=== PATIENT | male | born 1945 | race African-American/Black ===

== ENCOUNTER 2020-12-11 15:39 | Emergency (ER) | payer BC ==
[~2020-12-11] VITALS: Ht 180.3 cm; Wt 91.0 kg
[2020-12-11 16:48] LABS: BASOPHILS % 0.5 % (0.0-2.0); EOSINOPHILS % 3.2 % (0.0-5.0); HEMATOCRIT. 41.8 % (42.0-52.0); LYMPHOCYTES % 28.7 % (20.0-50.0); MEAN CORPUSCULAR HEMOGLOBIN 29.7 pg (28.0-32.0); MEAN CORPUSCULAR VOLUME 88.5 fL (80.0-94.0); MEAN PLATELET VOLUME 8.3 fl (7.4-10.4); MONOCYTES % 8.5 % (2.0-8.0); NEUTROPHILS % 59.1 % (40.0-76.0); PLATELET 249 x1000/uL (130-400); RED BLOOD CELL COUNT 4.72 mill/uL (4.7-6.1); RED CELL DISTRIBUTION WIDTH 14.2 % (11.6-14.6)
[2020-12-11 16:52] LABS: CHLORIDE 110 mEq/L (98-107)
[2020-12-11 17:36] VITALS: BP 126/67
== END 2020-12-11 18:14 | disposition home or self-care (01) ==
LOC: ER 15:39
DX: R55 Syncope and collapse (principal); Z86.73 Personal history of transient ischemic attack (TIA), and cerebral infarction without residual deficits
CPT/HCPCS: 36415; 71045; 80053; 83880; 84484; 85025; 93005; 99285; Z7610